=== PATIENT | male | born 2000 | race Caucasian/White ===

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

== ENCOUNTER 2021-06-06 09:01 | Emergency (ER) | payer BC, OTHER ==
[~2021-06-06] VITALS: Ht 187 cm; Wt 95.2 kg
[~2021-06-06 09:01] MED LIST changes: -SULF1TAB35 PO; +SULF1TAB38 PO
--- NOTE | 2021-06-06 10:28 | ED Cough/URI ---
General Chief Complaint: Cough/Cold/Flu Symptoms Stated Complaint: FEVER - 104 - COUGH - BODY ACHES Nursing Triage Note: PT PRESENTS TO ED VIA POV FROM HOME WITH COMPLAINTS OF FEVER, DIZZINESS, NAUSEA, AND MALAISE X 2 DAYS. PT REPORTS HIS LAST DOSE OF FEVER LANGUAGE PATH WAS LAST NIGHT. Source: patient Exam Limitations: no limitations History of Present Illness Date Seen by Provider: Jun 06, 2021 Time Seen by Provider: 10:27 Initial Comments To ER with fever dizziness nausea body aches for 3 days. Timing/Duration: constant Severity/Quality: moderate Associated Symptoms: cough, fever/chills, muscle aches, sore throat Allergies and Home Medications Allergies Coded Allergies: No Known Drug Allergies (Unverified , 01/22/14) Patient Home Medication List Home Medication List Reviewed: Yes No Active Prescriptions or Reported Meds Review of Systems Review of Systems Constitutional: see HPI, fever EENTM: see HPI Respiratory: see HPI Cardiovascular: no symptoms reported Genitourinary: no symptoms reported Musculoskeletal: no symptoms reported Skin: no symptoms reported Psychiatric/Neurological: No Symptoms Reported Hematologic/Lymphatic: No Symptoms Reported Immunological/Allergic: no symptoms reported Past Xiwraio-Wjcmrg-Wrhrsu Hx Patient Social History Tobacco Use?: Yes Tobacco type used: Cigarettes Smoking Status: Former Smoker Substance use?: No Alcohol Use?: No Pt feels they are or have been: No Immunizations Up To Date Tetanus Booster (TDap): Less than 5yrs PED Vaccines UTD: Yes Seasonal Allergies Seasonal Allergies: No Past Medical History Surgeries: No Respiratory: No Cardiac: No Neurological: No Reproductive Disorders: No Sexually Transmitted Disease: No HIV/AIDS: No Genitourinary: No Gastrointestinal: No Musculoskeletal: No Endocrine: No HEENT: No Cancer: No Psychosocial: No Integumentary: No Blood Disorders: No Adverse Reaction/Blood Tranf: No Physical Exam Vital Signs - First Documented 06/06/21 09:24 Temp 38.0 Pulse 142 Resp 16 B/P (MAP) 147/87 (107) Pulse Ox 96 Capillary Refill : Less Than 3 Seconds Height: 6'1.00" Weight: 180lbs. oz. 81.777692lw; 27.00 BMI Method:Stated General Appearance: WD/WN, no apparent distress Eyes: Bilateral Eye Normal Inspection, Bilateral Eye PERRL, Bilateral Eye EOMI HEENT: PERRL/EOMI, normal ENT inspection Neck: non-tender Respiratory: no respiratory distress, no accessory muscle use Cardiovascular: no murmur, tachycardia Gastrointestinal: normal bowel sounds, non tender, soft Neurologic/Psychiatric: alert, normal mood/affect, oriented x 3 Skin: normal color, warm/dry Progress/Results/Core Measures Suspected Sepsis SIRS Temperature: Pulse: 142 Respiratory Rate: 16 Blood Pressure 147 /87 Mean: 107 Results/Orders Lab Results Laboratory Tests Test 06/06/21 09:19 Range/Units Influenza Type A (RT-PCR) Detected H Not Detecte Influenza Type B (RT-PCR) Not Detected Not Detecte SARS-CoV-2 RNA (RT-PCR) Not Detected Not Detecte Vital Signs/I&O 06/06/21 09:24 Temp 38.0 Pulse 142 Resp 16 B/P (MAP) 147/87 (107) Pulse Ox 96 Capillary Refill : Less Than 3 Seconds Blood Pressure Mean: 107 Departure Impression Primary Impression: Influenza Disposition: 01 HOME, SELF-CARE Condition: Stable Departure-Patient Inst. Decision time for Depature: 10:27 Referrals: [facility] [place] (PCP/Family) Primary Care Physician Patient Instructions: Flu, Adult (DC) Add. Discharge Instructions: 1. Use Tylenol and ibuprofen for fever control. Return to ER for any concerns. Follow-up with your doctor next week. Take plenty fluids. All discharge instructions reviewed with patient and/or family. Voiced understanding. Scripts No Active Prescriptions or Reported Meds Work/School Note: Work Release Form Date Seen in the Emergency Department: Jun 06, 2021 Return to Work: Jun 10, 2021 DEMETRIA OLIVARES APRN Jun 06, 2021 10:28
[2021-06-06 10:33] VITALS: BP 132/84
== END 2021-06-06 10:30 | disposition home or self-care (01) ==
LOC: EDUNIT# 09:01 → ER 09:04
DX: J11.1 Influenza due to unidentified influenza virus with other respiratory manifestations (principal); Z20.822 Contact with and (suspected) exposure to COVID-19; Z87.891 Personal history of nicotine dependence
CPT/HCPCS: 87636; 99283